=== PATIENT | male | born 1950 | race Caucasian/White ===

== ENCOUNTER 2023-10-16 09:09 | Emergency (ER) | payer OTHER, MEDICARE, SELFPAY ==
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
[2023-10-16 09:22] VITALS: BP 164/91; PULSE 85; RESP 18; TEMP 36.9; O2SAT 98; BMI 30.7
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
[2023-10-16 10:14] VITALS: BP 132/81; PULSE 75; RESP 16; TEMP 36.7; O2SAT 97
== END 2023-10-16 14:10 | disposition home or self-care (01) ==
PROVIDERS: Emergency Provider Emergency Medicine; PCP Internal Medicine
DX: Z04.1 Encounter for examination and observation following transport accident (principal); M54.2 Cervicalgia; M54.50 Low back pain, unspecified; R07.81 Pleurodynia
CPT/HCPCS: 70450; 71101; 72125; 99283; 99284